=== PATIENT | female | born 1940 | race Caucasian/White ===

== ENCOUNTER 2018-08-01 14:10 | Inpatient (IN) | payer BC, OTHER ==
[~2018-08-01] VITALS: Ht 147.3 cm; Wt 56.2 kg
--- NOTE | 2018-08-01 14:12 | NUR ---
PATIENT BIBA TO BED 11
[2018-08-01 14:19] VITALS: BP 140/58
--- NOTE | 2018-08-01 14:20 | NUR ---
Note feliciano in EDM - 08/01/18 at 1432 by [email or web address] PT BIB ALS FROM HOME DUE TO SYNCOPAL EPISODE. PER ALS CREW " PT HAD P: 40 WHEN WE ARRIVED". R HAND 20G PRESENT AND INFUSED 300CC OF NS EN ROUTE. PT. STATES " I WAS IN MY [place] AND I SUDDENLY FELT DIZZY AND I SLOWLY FELL TO THE GROUND BUT DIDNT HIT MY HEAD". PT. IS AWAKE AND ALERT UPON ARRIVAL ABLE TO SPEAK IN FULL AND COMPLETE SENTENCES MED HX: [place] (3 MONTHS AGO), HTN ALLERGIES: NKA
--- NOTE | 2018-08-01 14:20 | NUR ---
78 Y F BIB ALS FROM HOME DUE TO SYNCOPAL EPISODE. PER ALS CREW " PT HAD P: 40 WHEN WE ARRIVED". R HAND 20G PRESENT AND INFUSED 300CC OF NS EN ROUTE. PT. STATES " I WAS IN MY [place] AND I SUDDENLY FELT DIZZY AND I SLOWLY FELL TO THE GROUND BUT DIDNT HIT MY HEAD". PATIENT IS ON 2 L 02 UPON ARRIVAL. 02 AT 100%. PT. IS AWAKE AND ALERT UPON ARRIVAL ABLE TO SPEAK IN FULL AND COMPLETE SENTENCES, BED DOWN, LOCKED, RAIL X2 MED HX: [place] (3 MONTHS AGO), HTN RX:TELMISARTAN, METROPOLOL, SIMVASTATIN, FAMOTIDINE, FISH OIL, LATANOPROST ALLERGIES: NKA
--- NOTE | 2018-08-01 14:25 | NUR ---
Jesica wiggins in [facility] - 08/01/18 at [email or web address] IN PATIENT ROOM
--- NOTE | 2018-08-01 14:25 | NUR ---
IN PATIENT ROOM
[2018-08-01] MEDS: NACL 0.9% 500 ML IV SCH ×2 (14:59→16:45)
[2018-08-01 15:16] LABS: BASOPHILS % (AUTO) 0.3 % (0.0-2.0); EOSINOPHILS # (AUTO) 0.1 K/uL (0-0.4); EOSINOPHILS % (AUTO) 1.7 % (0.0-4.0); HEMATOCRIT 38.3 % (36-48); HEMOGLOBIN 12.2 g/dL (12.0-16.0); LYMPHOCYTES # (AUTO) 2.9 K/uL (2.5-16.5); LYMPHOCYTES % (AUTO) 36.9 % (20.5-51.1); MEAN CORPUSCULAR HEMOGLOBIN 26 pg (27-31); MEAN CORPUSCULAR HGB CONC 32 g/dL (33-37); MEAN CORPUSCULAR VOLUME 81.8 fL (80-94); MONOCYTES # (AUTO) 0.5 K/uL (0.8-1.0); MONOCYTES % (AUTO) 6.7 % (1.7-9.3); NEUTROPHILS # (AUTO) 4.3 K/uL (1.8-7.7); NEUTROPHILS % (AUTO) 54.4 % (42.2-75.2); PLATELET COUNT (AUTO) 279 K/uL (140-450); RED BLOOD CELL COUNT(AUTO) 4.69 MIL/uL (4.20-5.40); RED CELL DISTRIBUTION WIDTH 14.2 % (11.6-13.7); WHITE BLOOD COUNT (AUTO) 7.9 K/uL (4.8-10.8)
[2018-08-01 15:20] LABS: ANION GAP 11.5 (8-16); CARBON DIOXIDE 25.1 mmol/L (21-32); CHLORIDE 101 mmol/L (98-107); CREATININE 1.3 mg/dL (0.6-1.3); GLUCOSE 131 mg/dL (74-106); POTASSIUM 4.6 mmol/L (3.5-5.1); SODIUM SERUM 133 mmol/L (136-145); UREA NITROGEN, BLOOD 23 mg/dL (7-18)
[2018-08-01 15:27] LABS: ALBUMIN 3.8 g/dL (3.4-5.0); ASPARTATE AMINOTRANSFERASE 14 U/L (15-37); TOTAL BILIRUBIN 0.3 mg/dL (0.0-1.0)
--- NOTE | 2018-08-01 15:28 | NUR ---
PATIENT STILL UNABLE TO PEE
[2018-08-01 15:35] LABS: PROTHROMBIN TIME 9.4 secs (10.8-13.4)
[2018-08-01] MEDS ORDERED: GLUCAGON 1 MG VIAL IVP ONE (15:40)
--- NOTE | 2018-08-01 15:55 | NUR ---
PATIENT TAKEN TO RD
--- NOTE | 2018-08-01 16:05 | NUR ---
PATIENT RETURNED FROM RD TO BED, BEDRAILS X 2, BED IS DOWN AND LOCKED
[2018-08-01 16:24] LABS: APPEARANCE,URINE CLEAR (CLEAR); BILIRUBIN,URINE NEGATIVE (NEGATIVE); BLOOD, URINE NEGATIVE (NEGATIVE); COLOR,URINE YELLOW (YELLOW); LEUKOCYTE ESTERASE ,URINE NEGATIVE (NEGATIVE); NITRITE, URINE NEGATIVE (NEGATIVE); UGLUCOSE NEGATIVE (NEGATIVE)
--- NOTE | 2018-08-01 16:30 | NUR ---
PATIENT HR IS 58 100% 02 ON 2 L BP 118/52 RR 12
[2018-08-01] MEDS ORDERED: MELA5TAB6 PO (17:14)
[2018-08-01] MEDS ORDERED: METO50TA34 PO (17:14)
[2018-08-01] MEDS ORDERED: FISH10005 PO (17:14)
[2018-08-01] MEDS ORDERED: AMLO10TA PO (17:14)
[2018-08-01] MEDS ORDERED: FAMO-90 PO (17:14)
--- NOTE | 2018-08-01 17:34 | NUR ---
RE-ASSESSED PATIENT, NS RUNNING, BED IS DOWN AND LOCKED, BED RAILS X2
--- NOTE | 2018-08-01 18:25 | NUR ---
PATIENT BEING ADMITTED, WAITING FOR ROOM ASSIGNMENT
[2018-08-01] MEDS ORDERED: ONDANSETRON 4 MG/2 ML VIAL IVP PRN (18:40)
[2018-08-01] MEDS ORDERED: MECLIZINE 25 MG TAB PO PRN (18:40)
--- NOTE | 2018-08-01 19:15 | NUR ---
ADMITTED A 78 Y/O FEMALE FROM VIA [facility]. PATIENT ABLE TO TRANSFERRED FROM [facility] TO BED WITH STAND BY ASSIST.V/S WNL. RESPIRATION EVEN AND UNLABORED. PATIENT [id number], ABLE TO VERBALIZED NEEDS. EXPLAINED PLAN OF CARE. . SKIN INTACT. MRSA NASAL SWAB DONE. ROUTINE ADMISSION CARE DONE AND CARRY OUT ORDERS. SNACK GIVEN. FALL PRECAUTION APPLIED. CALL LIGHT WITHIN REACH. ALL NEEDS ATTENDED. WILL CONTINUE TO MONITOR.
[2018-08-01 19:16] LABS: FREE T4 (FREE THYROXINE) 0.91 ng/dL (0.76-1.46); PHOSPHORUS 3.3 mg/dL (2.5-4.9); THYROID STIMULATING HORMONE 6.63 uIU/mL (0.34-3.74)
--- NOTE | 2018-08-01 19:21 | NUR ---
[facility] BEDSIDE REPORT GIVEN TO CAITLIN ANGEL.
[2018-08-01] MEDS: NACL 0.9% 1,000 ML IV SCH (19:45)
[2018-08-01] MEDS ORDERED: SIMV20TA6 PO (20:31)
[2018-08-01] MEDS ORDERED: TELM80TA1 PO (20:31)
[2018-08-01] MEDS ORDERED: XALOS OP (20:32)
[2018-08-01] MEDS ORDERED: NON-FORMULARY ITEM (Melatonin (Melatonin) 1 TAB) PO SCH (21:00)
[2018-08-01] MEDS ORDERED: ATORVASTATIN 20 MG TAB PO SCH (21:00)
--- NOTE | 2018-08-01 21:00 | NUR ---
V/S TAKEN AND RECORDED. SCHEDULE MEDICATION GIVEN TOLERATED WELL. PATIENT ASSISTED TO BATHROOM AND BACK TO BED. ALL NEEDS ATTENDED. CALL LIGHT WITHIN REACH. EXPLAINED TO USE CALL LIGHT FOR ASSISTANCE AND VERBALIZED UNDERSTANDING.[address] NO S/S OF DISTRESS NOTED. FALL PRECAUTION APPLIED. WILL CONTINUE TO MONITOR.
[2018-08-01] MEDS: DOCUSATE SODIUM 100 MG GELCAP PO SCH (21:16)
[2018-08-01 22:01] LABS: ANION GAP 7.4 (8-16); CARBON DIOXIDE 27.5 mmol/L (21-32); CHLORIDE 109 mmol/L (98-107); CREATININE 1.1 mg/dL (0.6-1.3); GLUCOSE 120 mg/dL (74-106); POTASSIUM 4.9 mmol/L (3.5-5.1); SODIUM SERUM 139 mmol/L (136-145); UREA NITROGEN, BLOOD 18 mg/dL (7-18)
[2018-08-02] VITALS: BP 123/57
--- NOTE | 2018-08-02 | NUR ---
SEEN PATIENT ASLEEP BUT EASILY AROUSABLE. NO S/S OF DISTRESS NOTED. CALL LIGHT WITHIN REACH.
--- NOTE | 2018-08-02 02:05 | NUR ---
CHECKED PATIENT ASLEEP SOUNDLY. MAINTAINED QUIET ENVIRONMENT FOR WELLNESS AND HEALING PROCESS. ALL NEEDS ATTENDED.
[2018-08-02 04:00] VITALS: BP 129/53
--- NOTE | 2018-08-02 04:00 | NUR ---
V/S TAKEN AND RECORDED.
[2018-08-02] MEDS: ACETAMINOPHEN 325 MG TAB PO PRN (05:04)
--- NOTE | 2018-08-02 07:27 | NUR ---
GAVE REPORT TO AM SHIFT RN AT BEDSIDE FOR CONTINUITY OF CARE. CALL LIGHT WITHIN REACH.ALL NEEDS ATTENDED. PATIENT IN STABLE CONDITION.
--- NOTE | 2018-08-02 07:28 | NUR ---
Received report from pm nurse Js. Pt asleep, respirations even & nonlabored, FLACC 0. R hand IV asymptomatic with ongoing NS @ 10 ml/hr. Call light within reach.
[2018-08-02 07:47] LABS: BASOPHILS % (AUTO) 0.4 % (0.0-2.0); EOSINOPHILS # (AUTO) 0.1 K/uL (0-0.4); EOSINOPHILS % (AUTO) 1.4 % (0.0-4.0); HEMATOCRIT 33.6 % (36-48); HEMOGLOBIN 10.8 g/dL (12.0-16.0); LYMPHOCYTES # (AUTO) 3.8 K/uL (2.5-16.5); LYMPHOCYTES % (AUTO) 54.6 % (20.5-51.1); MEAN CORPUSCULAR HEMOGLOBIN 26 pg (27-31); MEAN CORPUSCULAR HGB CONC 32 g/dL (33-37); MEAN CORPUSCULAR VOLUME 81.6 fL (80-94); MONOCYTES # (AUTO) 0.4 K/uL (0.8-1.0); MONOCYTES % (AUTO) 5.5 % (1.7-9.3); NEUTROPHILS # (AUTO) 2.6 K/uL (1.8-7.7); NEUTROPHILS % (AUTO) 38.1 % (42.2-75.2); PLATELET COUNT (AUTO) 244 K/uL (140-450); RED BLOOD CELL COUNT(AUTO) 4.11 MIL/uL (4.20-5.40); RED CELL DISTRIBUTION WIDTH 14.1 % (11.6-13.7); WHITE BLOOD COUNT (AUTO) 6.9 K/uL (4.8-10.8)
[2018-08-02 07:53] LABS: ANION GAP 6.8 (8-16); CARBON DIOXIDE 27.2 mmol/L (21-32); CHLORIDE 107 mmol/L (98-107); GLUCOSE 95 mg/dL (74-106); SODIUM SERUM 137 mmol/L (136-145); UREA NITROGEN, BLOOD 15 mg/dL (7-18)
[2018-08-02 08:00] VITALS: BP 130/59
[2018-08-02 08:09] LABS: CHOL/HDL RATIO 2.8 (1-4.5); MAGNESIUM 1.9 mg/dL (1.8-2.4); PHOSPHORUS 2.8 mg/dL (2.5-4.9)
--- NOTE | 2018-08-02 08:45 | NUR ---
Informed pt that talmisartan is non-formulary in pharmacy & will need family to bring med from home. Per pt, she will call her daughter Adeline to bring home meds.
[2018-08-02] MEDS ORDERED: LISINOPRIL 5 MG TAB PO SCH (09:00)
[2018-08-02] MEDS ORDERED: METOPROLOL SUCCINATE 50 MG TABER PO SCH ×2 (09:00→21:00)
[2018-08-02] MEDS ORDERED: amLODIPine 5 MG TAB PO SCH ×2 (09:00→21:00)
[2018-08-02] MEDS ORDERED: ASPIRIN 81 MG TAB.CHEW PO SCH ×2 (09:00→21:00)
[2018-08-02] MEDS: FAMOTIDINE 20 MG TAB PO SCH (09:54)
[2018-08-02] MEDS: DOCUSATE SODIUM 100 MG GELCAP PO SCH ×2 (09:59→20:22)
[2018-08-02] MEDS: NACL 0.9% 1,000 ML IV SCH (10:57)
--- NOTE | 2018-08-02 11:40 | NUR ---
Pt's daughter Adeline came in to visit pt. Received telmisartan/amlodipine tabs & fish oil caps. Meds sent to pharmacy.
[2018-08-02 12:00] VITALS: BP 142/58
[2018-08-02] MEDS ORDERED: AMLODIPINE PO SCH (12:05)
[2018-08-02] MEDS ORDERED: TELMISARTAN PO SCH (12:05)
[2018-08-02] MEDS ORDERED: traZODone 50 MG TAB PO SCH ×2 (15:20→16:06)
[2018-08-02 16:00] VITALS: BP 128/53
--- NOTE | 2018-08-02 16:30 | NUR ---
Trazodone med initiated per Dr order. Pt teaching provided re: med indication & possible adverse effects. Pt verbalized understanding & agree with plan of care.
--- NOTE | 2018-08-02 19:15 | NUR ---
Report given to pm nurse Js.
--- NOTE | 2018-08-02 19:17 | NUR ---
RECEIVED PATIENT ASLEEP ON BED. IVF INFUSING WELL. RESPIRATION EVEN AND UNLABORED. CALL LIGHT WITHIN REACH. FALL PRECAUTION APPLIED. CALL LIGHT WITHIN REACH.
[2018-08-02 20:00] VITALS: BP 127/56
--- NOTE | 2018-08-02 20:00 | NUR ---
V/S TAKEN AND RECORDED.ORTHOSTATIC BP DONE. ASSISTED PATIENT TO BATHROOM NO COMPLAINT OF DIZZINESS. PATIENT ABLE TO AMBULATE BY HERSELF WITH CONSTANT MONITORING FOR SAFETY.EXPLAINED TO PATIENT TO USE CALL LIGHT FOR ASSISTANCE AND VERBALIZED UNDERSTANDING. BED IN LOW LOCKED POSITION. PATIENT ABLE TO VERBALIZED HER NEEDS AND OBEYS COMMAND. ALL NEEDS ATTENDED.WILL CONTINUE TO MONITOR.
[2018-08-02] MEDS: TELMISARTAN PO SCH ×2 (20:25→20:32)
[2018-08-02] MEDS: AMLODIPINE PO SCH ×2 (20:25→20:32)
--- NOTE | 2018-08-02 20:40 | NUR ---
HEPARIN [address] INGRAM.
[2018-08-02] MEDS ORDERED: SIMVASTATIN 20 MG TAB PO SCH (21:00)
[2018-08-02] MEDS ORDERED: LATANOPROST 0.005% OP 2.5 ML BTL OP SCH (21:00)
--- NOTE | 2018-08-02 21:00 | NUR ---
SCHEDULE MEDICATION GIVEN TOLERATED WELL.
[2018-08-03] VITALS: BP 111/51
--- NOTE | 2018-08-03 | NUR ---
V/S TAKEN. PATIENT AWAKE AND VERBALIZED NEEDS. FALL PRECAUTION APPLIED. NO S/S OF DISTRESS NOTED. WILL CONTINUE TO MONITOR.
[2018-08-03] MEDS: NACL 0.9% 1,000 ML IV SCH ×2 (00:17→13:46)
--- NOTE | 2018-08-03 02:00 | NUR ---
MAINTAINED QUIET ENVIRONMENT TO RECUPERATE PATIENT. PATIENT ASLEEP BUT EASILY AROUSABLE. NO S/S OF DISTRESS NOTED.
[2018-08-03 04:00] VITALS: BP 133/51
--- NOTE | 2018-08-03 04:00 | NUR ---
V/S TAKEN AND RECORDED. ALL NEEDS ATTENDED. NO S/S OF DISTRESS NOTED. WILL CONTINUE TO MONITOR.
--- NOTE | 2018-08-03 07:25 | NUR ---
ENDORSEMENT GIVEN TO AM SHIFT RN AT BEDSIDE FOR CONTINUITY OF CARE. CALL LIGHT WITHIN REACH. PATIENT IN STABLE CONDITION.
--- NOTE | 2018-08-03 07:25 | NUR ---
RECEIVED PATIENT FROM CCTV TECHNICIAN. PT IS ASLEEP ON BED. IVF INFUSING WELL. RESPIRATION EVEN AND UNLABORED. CALL LIGHT WITHIN REACH. FALL PRECAUTION APPLIED. CALL LIGHT WITHIN REACH. WILL ROUND FREQUENTLY ON PT.
[2018-08-03 08:00] VITALS: BP 128/60
[2018-08-03 08:02] LABS: BASOPHILS % (AUTO) 0.6 % (0.0-2.0); EOSINOPHILS # (AUTO) 0.1 K/uL (0-0.4); EOSINOPHILS % (AUTO) 2.2 % (0.0-4.0); HEMATOCRIT 35.2 % (36-48); HEMOGLOBIN 11.3 g/dL (12.0-16.0); LYMPHOCYTES # (AUTO) 2.7 K/uL (2.5-16.5); LYMPHOCYTES % (AUTO) 53.2 % (20.5-51.1); MEAN CORPUSCULAR HEMOGLOBIN 26 pg (27-31); MEAN CORPUSCULAR HGB CONC 32 g/dL (33-37); MEAN CORPUSCULAR VOLUME 81.7 fL (80-94); MONOCYTES # (AUTO) 0.4 K/uL (0.8-1.0); NEUTROPHILS # (AUTO) 1.9 K/uL (1.8-7.7); PLATELET COUNT (AUTO) 244 K/uL (140-450); RED BLOOD CELL COUNT(AUTO) 4.31 MIL/uL (4.20-5.40); RED CELL DISTRIBUTION WIDTH 14.3 % (11.6-13.7); WHITE BLOOD COUNT (AUTO) 5.1 K/uL (4.8-10.8)
[2018-08-03 08:12] LABS: ANION GAP 11.4 (8-16); CARBON DIOXIDE 25.8 mmol/L (21-32); CHLORIDE 105 mmol/L (98-107); CREATININE 1.1 mg/dL (0.6-1.3); GLUCOSE 96 mg/dL (74-106); POTASSIUM 4.2 mmol/L (3.5-5.1); SODIUM SERUM 138 mmol/L (136-145); UREA NITROGEN, BLOOD 23 mg/dL (7-18)
[2018-08-03 08:13] LABS: MAGNESIUM 1.9 mg/dL (1.8-2.4); PHOSPHORUS 3.3 mg/dL (2.5-4.9)
--- NOTE | 2018-08-03 08:29 | NUR ---
PATIENT HAS BEEN SCREENED AND CATEGORIZED MODERATE NUTRITION RISK. PATIENT WILL BE SEEN WITHIN 3-5 DAYS OF ADMISSION. 08/04/18[address]
[2018-08-03] MEDS ORDERED: TELMISARTAN PO SCH (09:00)
[2018-08-03] MEDS ORDERED: AMLODIPINE PO SCH (09:00)
[2018-08-03] MEDS: ACETAMINOPHEN 325 MG TAB PO PRN (09:17)
[2018-08-03] MEDS: FAMOTIDINE 20 MG TAB PO SCH (09:18)
[2018-08-03] MEDS: DOCUSATE SODIUM 100 MG GELCAP PO SCH (09:18)
--- NOTE | 2018-08-03 09:20 | NUR ---
ADMINISTERED MORNING MEDS TO PT. PT TOLERATED WELL. ALL NEEDS MET AT THIS TIME. WILL CONTINUE TO ROUND FREQUENTLY.
[2018-08-03] MEDS ORDERED: TRAZ-466 PO (09:22)
[2018-08-03 12:00] VITALS: BP 130/57
--- NOTE | 2018-08-03 15:27 | NUR ---
PT DISCHARGED HOME WITH DAUGHTER FOR SELF CARE. PT SIGNED ALL DISCHARGE PAPERWORK. VERBALIZED UNDERSTANDING OF TEACHING. IV REMOVED WITH TIP INTACT. WRISTBAND REMOVED AND PLACED IN SHREDDAR. ALL PERSONAL BELONGINGS TAKEN WITH PT. MEDICATIONS PICKED UP FROM PHARMACY AND GIVEN TO PT AT DISCHARGE. PT WHEELED OUT TO FRONT ENTRANCE. PT LEFT IN STABLE CONDITION.
[2018-08-03] MEDS ORDERED: traZODone 50 MG TAB PO SCH (21:00)
== END 2018-08-03 15:27 | disposition home or self-care (01) | DRG 74 ==
LOC: MED 14:10 → MTU 18:45
PROVIDERS: ADMIT General Practice; ATTEND General Practice
DX: G90.8 Other disorders of autonomic nervous system (principal); E87.1 Hypo-osmolality and hyponatremia; R00.1 Bradycardia, unspecified; I10 Essential (primary) hypertension; E78.5 Hyperlipidemia, unspecified; G47.00 Insomnia, unspecified; T44.7X5A Adverse effect of beta-adrenoreceptor antagonists, initial encounter; K21.9 Gastro-esophageal reflux disease without esophagitis; Z79.899 Other long term (current) drug therapy; Y92.89 Other specified places as the place of occurrence of the external cause
CPT/HCPCS: 36415; 70450; 71045; 80048; 80053; 81003; 82140; 82150; 83036; 83605; 83690; 83735; 83880; 84100; 84439; 84443; 84484; 85025; 85610; 85730; 87040; 87081; 87086; 93005; 93880; 96361; 96374; 99285; J1610; J1644; J7030; Q0092